=== PATIENT | female | born 1975 | race African-American/Black ===

== ENCOUNTER 2017-05-22 17:05 | Emergency (ER) | payer OTHER ==
[2017-05-22 17:17] VITALS: TEMP 98.7; BMI 38.4
[2017-05-22] MEDS ORDERED: ASPIRIN 81 MG CHEWABLE TABLETS PO ONE (19:22)
[2017-05-22] MEDS ORDERED: ASPIRIN 81 MG CHEWABLE TABLETS ONE (19:47)
[2017-05-22 19:52] LABS: BASOPHIL 0.8 % (0-2.0); EOSINOPHIL 1.7 % (0-4.5); MCH 28.1 pg (25.7-33.7); MCHC 33.4 g/dl (32.0-36.0); MEAN CELL VOLUME 84.1 fl (80-96); MEAN PLT VOLUME 7.3 fl (7.5-11.1); NEUTROPHILS 60.7 % (42.8-82.8); PLATELET COUNT 334 K/MM3 (134-434); RDW 14.6 % (11.6-15.6); WHITE BLOOD COUNT 10.6 K/mm3 (4.0-10.0)
[2017-05-22 19:59] VITALS: BP 146/91; PULSE 88
[2017-05-22 20:14] LABS: INR 0.96 (0.82-1.09); PROTHROMBIN TIME (PATIENT) 10.9 SEC (9.98-11.88)
[2017-05-22 20:27] LABS: ALBUMIN 3.2 g/dl (3.4-5.0); ANION GAP 6 (8-16); BILIRUBIN,TOTAL 0.3 mg/dL (0.2-1.0); CALCIUM 8.4 mg/dL (8.5-10.1); CO2 28 mmol/L (21-32); CREATININE 0.7 mg/dL (0.55-1.02); GLUCOSE,RANDOM 74 mg/dL (74-106); MAGNESIUM 2.2 mg/dL (1.8-2.4); SGOT/AST 11 U/L (15-37); SGPT/ALT 24 U/L (12-78)
[2017-05-22 20:29] LABS: ALK PHOS 67 U/L (45-117); CPK 136 IU/L (26-192); TROPONIN I < 0.02 ng/ml (0.00-0.05)
[2017-05-22 20:36] LABS: URINE APPEARANCE CLOUDY; URINE BILIRUBIN NEGATIVE (NEGATIVE); URINE BLOOD 3+ (NEGATIVE); URINE COLOR YELLOW; URINE GLUCOSE (UA) NEGATIVE (NEGATIVE); URINE KETONE NEGATIVE (NEGATIVE); URINE NITRITE NEGATIVE (NEGATIVE); URINE PROTEIN NEGATIVE (NEGATIVE); URINE UROBILINOGEN NEGATIVE mg/dL (0.2-1.0)
[2017-05-22] MEDS ORDERED: SODIUM CHLORIDE 1,000 ML IV STA (21:03)
[2017-05-22 21:14] LABS: URINE MUCUS RARE; URINE RBC 49 /hpf (0-3); URINE WBC 10 /hpf (3-5); YEAST FEW
--- NOTE | 2017-05-22 21:24 | PDOC ---
History of Present Illness - General History Source: Patient Exam Limitations: No Limitations <HarisVioleta - Last Filed: 05/22/17 21:48> <Sheyla Gonzalez - Last Filed: 05/23/17 01:01> - General Chief Complaint: Palpitations Stated Complaint: CHEST PAIN Time Seen by Provider: 05/22/17 18:08 - History of Present Illness Initial Comments: 05/22/17 21:48 The patient is a 41 year old female, with a significant past medical history of Morbid Obesity, HLD, Depression, Anxiety, Fibromyalgia, Arthritis who presents to the emergency department with palpitations for the past four days. Patient reports sudden onset of palpitations at rest, initially intermittent however became constant today. Patient reports associated SOB however denies any chest pain, diaphoresis or dyspnea on exertion. Patient presents to the ED for further evaluation. She denies headache or dizziness. She denies fever, chills, abdominal pain, nausea, vomit, diarrhea or constipation. She denies dysuria, frequency, urgency or hematuria. Patient denies sick contacts or recent travel. Allergies: Penicillins Past surgical history: Hernia, D&C, C Section 2012, Thyrdoidectomy, Breast reduction, Social history: Social EtOH use. Former smoker (2010) Denied IVDA. PCP: Dr. Valente Lynn (Violeta Carballo) Past History <Violeta Carballo - Last Filed: 05/22/17 21:48> - Past Medical History Cardiac Disorders: Yes (heart murmur) Hypercholesterolemia: Yes Psychiatric Problems: Yes (depression/anxiety) Thyroid Disease: Yes Other medical history: fibromyalgia, inflammation of fascits, arthritis, pinched nerves on back - Surgical History Abdominal Surgery: Yes (Hernia, and D&C) - Immunization History Immunization Up to Date: Yes - Suicide/Smoking/Psychosocial Hx Smoking History: Never smoked Have you smoked in the past 12 months: No Information on smoking cessation initiated: No Hx Alcohol Use: No Drug/Substance Use Hx: No Substance Use Type: Alcohol <Sheyla Gonzalez - Last Filed: 05/23/17 01:01> - Past Medical History Allergies/Adverse Reactions: Allergies Allergy/AdvReac Type Severity Reaction Status Date / Time Penicillins Allergy Verified 05/22/17 20:22 Home Medications: Ambulatory Orders Clonazepam [Klonopin] 1.25 mg PO DAILY 02/12/14 Pregabalin [Lyrica -] 300 mg PO BID 02/12/14 Cholecalciferol (Vitamin D3) [Vitamin D-3] 2,000 unit PO DAILY 09/01/15 Cyclobenzaprine HCl [Flexeril -] 10 mg PO TID PRN 09/01/15 Duloxetine HCl 60 mg PO DAILY 09/01/15 Ibuprofen 600 mg PO TID 09/01/15 Levothyroxine [Synthroid -] 88 mcg PO DAILY 09/01/15 Atorvastatin Ca [Lipitor] 10 mg PO HS 05/22/17 Frovatriptan Succinate [Frova] 2.5 mg PO ASDIR PRN 05/22/17 Review of Systems - Review of Systems Able to Perform ROS?: Yes <Violeta Carballo - Last Filed: 05/22/17 21:48> <Sheyla Gonzalez - Last Filed: 05/23/17 01:01> - Review of Systems Comments:: 05/22/17 21:48 CONSTITUTIONAL: Absent: fever, chills, diaphoresis, generalized weakness, malaise, loss of appetite HEENT: Absent: rhinorrhea, nasal congestion, throat pain, throat swelling, difficulty swallowing, mouth swelling, ear pain, eye pain, visual Changes CARDIOVASCULAR: +palpitations. Absent: chest pain, syncope, palpitations, irregular heart rate, lightheadedness , peripheral edema RESPIRATORY: Absent: cough, shortness of breath, dyspnea with exertion, orthopnea, wheezing, stridor, hemoptysis GASTROINTESTINAL: Absent: abdominal pain, abdominal distension, nausea, vomiting, diarrhea, constipation, melena, hematochezia GENITOURINARY: Absent: dysuria, frequency, urgency, hesitancy, hematuria, flank pain, genital pain MUSCULOSKELETAL: Absent: myalgia, arthralgia, joint swelling SKIN: Absent: rash, itching, pallor HEMATOLOGIC/IMMUNOLOGIC: Absent: easy bleeding, easy bruising, lymphadenopathy, frequent infections ENDOCRINE: Absent: unexplained weight gain, unexplained weight loss, heat intolerance, cold intolerance NEUROLOGIC: Absent: headache, focal weakness or paresthesias, dizziness, unsteady gait, seizure, mental status changes, bladder or bowel incontinence PSYCHIATRIC: Absent: anxiety, depression, suicidal or homicidal ideation, hallucinations. (Violeta Carballo) *Physical Exam <Violeta Carballo - Last Filed: 05/22/17 21:48> <Sheyla Gonzalez - Last Filed: 05/23/17 01:01> - Vital Signs Last Vital Signs Temp Pulse Resp BP Pulse Ox 98.7 F 88 18 146/91 100 05/22/17 17:14 05/22/17 19:58 05/22/17 19:58 05/22/17 19:58 05/22/17 19:58 - Physical Exam Comments: 05/22/17 21:49 GENERAL: +Obese. Well developed, well nourished. Awake and alert. No acute distress. HEENT: Normocephalic, atraumatic. PERRLA, EOMI. No conjunctival pallor. Sclera are non- icteric. Moist mucous membranes. Oropharynx is clear. NECK: Supple. Full ROM. No JVD. Carotid pulses 2+ and symmetric, without bruits. No thyromegaly. No lymphadenopathy. CARDIOVASCULAR: +Sinus tachycardia. Regular rhythm. No murmurs, rubs, or gallops. Distal pulses are 2+ and symmetric. PULMONARY: No evidence of respiratory distress. Lungs clear to auscultation bilaterally. No wheezing, rales or rhonchi. ABDOMINAL: +Protuberant. Soft. Non-tender. Non-distended. No rebound or guarding. No organomegaly. Normoactive bowel sounds. MUSCULOSKELETAL Normal range of motion at all joints. No bony deformities or tenderness. No CVA tenderness. EXTREMITIES: No cyanosis. No clubbing. No edema. No calf tenderness. SKIN: Warm and dry. Normal capillary refill. No rashes. No jaundice. NEUROLOGICAL: Alert, awake, appropriate. Cranial nerves 2-12 intact. No deficits to light touch and temperature in face, upper extremities and lower extremities. No motor deficits in the in face, upper extremities and lower extremities. Normoreflexic in the upper and lower extremities. Normal speech. Toes are down-going bilaterally. Gait is normal without ataxia. PSYCHIATRIC: Cooperative. Good eye contact. Appropriate mood and affect. (Violeta Carballo) ED Treatment Course - LABORATORY CBC & Chemistry Diagram: 05/22/17 19:40 05/22/17 19:40 <Violeta Carballo - Last Filed: 05/22/17 21:48> - LABORATORY CBC & Chemistry Diagram: 05/22/17 19:40 05/22/17 19:40 <Sheyla Gonzalez - Last Filed: 05/23/17 01:01> - ADDITIONAL ORDERS Additional order review: Laboratory Results 05/22/17 05/22/17 05/22/17 20:30 20:30 19:40 PT with INR INR D-Dimer Sodium 139 Potassium 4.3 Chloride 105 Carbon Dioxide 28 Anion Gap 6 L BUN 7 D Creatinine 0.7 Creat Clearance w eGFR > 60 Random Glucose 74 Calcium 8.4 L Magnesium 2.2 Total Bilirubin 0.3 AST 11 L D ALT 24 Alkaline Phosphatase 67 Creatine Kinase 136 Troponin I < 0.02 B-Natriuretic Peptide 69.90 Total Protein 7.0 Albumin 3.2 L Serum , Qual Negative Urine Color Yellow Urine Appearance Cloudy Urine pH 8.0 D Ur Specific [place] 1.020 Urine Protein Negative Urine Glucose (UA) Negative Urine Ketones Negative Urine Blood 3+ H Urine Nitrite Negative Urine Bilirubin Negative Urine Urobilinogen Negative Ur Leukocyte Esterase Negative Urine RBC 49 Urine WBC 10 Ur Epithelial Cells Rare Urine Mucus Rare Urine Yeast Few 05/22/17 19:40 PT with INR 10.90 INR 0.96 D-Dimer 293 H Sodium Potassium Chloride Carbon Dioxide Anion Gap BUN Creatinine Creat Clearance w eGFR Random Glucose Calcium Magnesium Total Bilirubin AST ALT Alkaline Phosphatase Creatine Kinase Troponin I B-Natriuretic Peptide Total Protein Albumin Serum , Qual Urine Color Urine Appearance Urine pH Ur Specific [place] Urine Protein Urine Glucose (UA) Urine Ketones Urine Blood Urine Nitrite Urine Bilirubin Urine Urobilinogen Ur Leukocyte Esterase Urine RBC Urine WBC Ur Epithelial Cells Urine Mucus Urine Yeast 05/22/17 19:40 RBC 4.12 MCV 84.1 MCHC 33.4 RDW 14.6 MPV 7.3 L D Neutrophils % 60.7 D Lymphocytes % 28.2 D Monocytes % 8.6 Eosinophils % 1.7 Basophils % 0.8 - RADIOLOGY Radiology Studies Ordered: Category Date Time Status CHEST CTA [CT] Stat CT Scan 05/22/17 21:02 Completed - Medications Given in the ED: ED Medications Discontinued Medications Generic Name Dose Route Start Last Admin Trade Name Freq PRN Reason Stop Dose Admin Aspirin 162 mg 05/22/17 19:22 05/22/17 19:56 Asa - PO 05/22/17 19:23 162 mg ONCE ONE Administration Diphenhydramine HCl 25 mg 05/22/17 22:21 05/22/17 22:50 Benadryl Injection - IVPUSH 05/22/17 22:22 25 mg ONCE ONE Administration Sodium Chloride 1,000 mls @ 1,000 mls/hr 05/22/17 21:03 05/22/17 21:32 Normal Saline - IV 05/22/17 22:02 1,000 mls/hr ASDIR STA Administration Ondansetron HCl 4 mg 05/22/17 22:20 05/22/17 22:50 Zofran Injection IVPUSH 05/22/17 22:21 4 mg ONCE ONE Administration Medical Decision Making <Violeta Carballo - Last Filed: 05/22/17 21:48> <Sheyla Gonzalez - Last Filed: 05/23/17 01:01> - Medical Decision Making 05/23/17 00:58 41-year-old female presents with 4 days of palpitations and has been feeling short of breath today. She has past medical history significant for DVT, fibromyalgia, obesity, hypercholesterolemia EKG was normal sinus rhythm at 99 bpm. When compared to the previous EKG there is no significant changes She was not hypoxic. CBC was unremarkable. Her electrolytes, liver function tests, cardiac enzymes were all within normal limits CT of the chest was negative for any pulmonary embolus Impression palpitations On further discussion, the patient did admit to see a sports apparel internship and having a echo done, but then never went back to see him whenshe became symptomatic ( Sheyla Gonzalez) *DC/Admit/Observation/Transfer <Violeta Carballo - Last Filed: 05/22/17 21:48> <Sheyla Gonzalez - Last Filed: 05/23/17 01:01> Diagnosis at time of Disposition: Palpitations - Discharge Dispostion Disposition: HOME Condition at time of disposition: Stable - Referrals Referrals: Shane Victor [Primary Care Provider] - - Patient Instructions Printed Discharge Instructions: DI for Palpitations Additional Instructions: please follow up with your regular physician I have given you the name of a heart doctor for further evaluation return for any worsening symptoms - Attestations Scribe Attestion: 05/22/17 21:49 Documentation prepared by Violeta Carballo, acting as faculty i on call medical assistant for Sheyla Gonzalez MD (Violeta Carballo)
[2017-05-22] MEDS ORDERED: ONDANSETRON 4 MG/2 ML VIAL IVPUSH ONE (22:20)
[2017-05-22 22:53] LABS: URINE LEUK ESTERASE Negative (NEGATIVE)
--- NOTE | 2017-05-24 09:34 | EKG ---
Test Reason : Blood Pressure : / mmHG Vent. Rate : 099 BPM Atrial Rate : 099 BPM P-R Int : 168 ms QRS Dur : 082 ms QT Int : 350 ms P-R-T Axes : 061 056 023 degrees QTc Int : 449 ms NORMAL SINUS RHYTHM NONSPECIFIC T WAVE ABNORMALITY ABNORMAL ECG WHEN COMPARED WITH ECG OF 01-SEP-2015 20:03, NO SIGNIFICANT CHANGE WAS FOUND Confirmed by JUSTYN VARGAS MD ([id number]) on 05/24/2017 9:33:53 AM Referred By: Confirmed By:JUSTYN VARGAS MD
== END 2017-05-23 01:14 | disposition home or self-care (01) ==
LOC: JER 17:05
PROC: 3E0337Z Introduction of Electrolytic and Water Balance Substance into Peripheral Vein, Percutaneous Approach (ICD-10-PCS; principal; 2017-05-22)
PROC: 3E033GC Introduction of Other Therapeutic Substance into Peripheral Vein, Percutaneous Approach (ICD-10-PCS; 2017-05-22)
DX: R00.2 Palpitations (principal); E03.9 Hypothyroidism, unspecified; F41.8 Other specified anxiety disorders; M79.7 Fibromyalgia; E66.01 Morbid (severe) obesity due to excess calories; Z68.38 Body mass index [BMI] 38.0-38.9, adult
CPT/HCPCS: 36415; 71275-TC; 80053; 81003; 81015; 82550; 83735; 83880; 84484; 84703; 85025; 85379; 85610; 93005; 93010; 96361; 96374; 96375; 99283-25

== ENCOUNTER 2018-11-19 16:50 | Emergency (ER) | payer OTHER ==
--- NOTE | 2018-11-19 17:02 | PDOC ---
Rapid Medical Evaluation Chief Complaint: Injury Time Seen by Provider: 11/19/18 17:00 Medical Evaluation: Allergies Allergy/AdvReac Type Severity Reaction Status Date / Time Penicillins Allergy Verified 05/22/17 20:22 11/19/18 17:00 I have performed a brief in-person evaluation of this patient. The patient presents with a chief complaint of:R ankle/L knee pain s/p fall at work today. H/o fibromyalgia Pertinent physical exam findings:Doroteo in place to L ankle and R knee I have ordered the following:xray The patient will proceed to the ED for further evaluation. Discharge Disposition - Diagnosis Ankle injury Qualifiers: Encounter type: initial encounter Laterality: right Qualified Code(s): S99.911A - Unspecified injury of right ankle, initial encounter - Referrals - Patient Instructions - Post Discharge Activity
[2018-11-19 17:19] VITALS: BP 120/77; PULSE 91; TEMP 98.5; BMI 37.1
--- NOTE | 2018-11-19 18:14 | PDOC ---
History of Present Illness - General Chief Complaint: Injury Stated Complaint: FALL Time Seen by Provider: 11/19/18 17:00 - History of Present Illness Initial Comments: 11/19/18 18:10 43-year-old female with a past medical history of dyslipidemia and fibromyalgia presents after a mechanical fall today for right ankle pain and left knee pain. No loss consciousness or post injury nausea vomiting or visual changes. Past History - Past Medical History Allergies/Adverse Reactions: Allergies Allergy/AdvReac Type Severity Reaction Status Date / Time Penicillins Allergy Verified 11/19/18 17:23 Home Medications: Ambulatory Orders Clonazepam [Klonopin] 1.25 mg PO DAILY 02/12/14 Pregabalin [Lyrica -] 300 mg PO BID 02/12/14 Cholecalciferol (Vitamin D3) [Vitamin D-3] 2,000 unit PO DAILY 09/01/15 Cyclobenzaprine HCl [Flexeril -] 10 mg PO TID PRN 09/01/15 Duloxetine HCl 60 mg PO DAILY 09/01/15 Ibuprofen 600 mg PO TID 09/01/15 Levothyroxine [Synthroid -] 88 mcg PO DAILY 09/01/15 Atorvastatin Ca [Lipitor] 10 mg PO HS 05/22/17 Frovatriptan Succinate [Frova] 2.5 mg PO ASDIR PRN 05/22/17 Cardiac Disorders: Yes (heart murmur) COPD: No Hypercholesterolemia: Yes Psychiatric Problems: Yes (depression/anxiety) Thyroid Disease: Yes - Surgical History Abdominal Surgery: Yes (Hernia, and D&C) - Immunization History Immunization Up to Date: Yes - Suicide/Smoking/Psychosocial Hx Smoking History: Never smoked Have you smoked in the past 12 months: No Information on smoking cessation initiated: No Hx Alcohol Use: No Drug/Substance Use Hx: No Substance Use Type: Alcohol Review of Systems - Review of Systems Musculoskeletal: Yes: See HPI, Joint Pain *Physical Exam - Vital Signs Last Vital Signs Temp Pulse Resp BP Pulse Ox 98.5 F 91 H 16 120/77 100 11/19/18 17:00 11/19/18 17:00 11/19/18 17:00 11/19/18 17:00 11/19/18 17:00 - Physical Exam Comments: 11/19/18 18:11 Left knee skin color and temperature are normal range of motion is full. She has diffuse tenderness which is out of proportion to the examination. No instability or gross sensorimotor deficits. She is neurovascularly intact. Eyes and calves are soft and nontender. Right ankle skin color and temperature are normal. There is mild lateral swelling. She has no tenderness about the right knee proximal fibula or along its distal coarse. No tenderness about the medial malleolus navicular base of the fifth metatarsal. Mild tenderness over the lateral malleolus and ATFL. She is unable to tolerate stability testing she is neurovascularly intact free of any gross sensorimotor deficits thighs and calves are soft and nontender. Medical Decision Making - Medical Decision Making 11/19/18 18:12 This is a 43-year-old female with a past medical history of fibromyalgia. She is very tender all over even to light touch which is out of proportion to the examination. This is a right ankle sprain in the left knee contusion. She may weight-bear as tolerated with the use of crutches and Aircast follow-up with orthopedic surgery discussed use of Tylenol and Motrin for pain. *DC/Admit/Observation/Transfer Diagnosis at time of Disposition: Ankle sprain, Knee contusion Ankle injury Qualifiers: Encounter type: initial encounter Laterality: right Qualified Code(s): S99.911A - Unspecified injury of right ankle, initial encounter - Discharge Dispostion Disposition: HOME Condition at time of disposition: Stable Decision to Admit order: No - Referrals Referrals: ON STAFF,NOT [Primary Care Provider] - Dar Sears DO [Staff Physician] - - Patient Instructions Printed Discharge Instructions: Ankle Sprain, DI for Ankle Sprain, Contusion Additional Instructions: He may weight-bear as tolerated with use of crutches and the Aircast. Tylenol and Motrin as directed for pain. Return to the emergency room for worsening symptoms and follow-up with orthopedic surgery in 1-2 days for further evaluation and treatment options. He may remove the ankle splint for hygiene and comfort as well as gentle range of motion exercises. - Post Discharge Activity
== END 2018-11-19 18:56 | disposition home or self-care (01) ==
LOC: JERFT 16:50
DX: S93.401A Sprain of unspecified ligament of right ankle, initial encounter (principal); S80.02XA Contusion of left knee, initial encounter; W18.39XA Other fall on same level, initial encounter; Y93.89 Activity, other specified; Y92.39 Other specified sports and athletic area as the place of occurrence of the external cause; Y99.0 Civilian activity done for income or pay; R01.1 Cardiac murmur, unspecified; E78.00 Pure hypercholesterolemia, unspecified; F41.8 Other specified anxiety disorders; F32.9 Major depressive disorder, single episode, unspecified; M79.7 Fibromyalgia
CPT/HCPCS: 73562-TC-LT-FY; 73610-TC-RT-FY; 73630-TC-RT-FY; 99281-25

== ENCOUNTER 2019-05-17 15:16 | Emergency (ER) | payer OTHER ==
[2019-05-17 15:25] VITALS: BP 127/84; PULSE 83; TEMP 97.5; BMI 36.1
--- NOTE | 2019-05-17 15:28 | PDOC ---
Rapid Medical Evaluation Time Seen by Provider: 05/17/19 15:23 Medical Evaluation: Allergies Allergy/AdvReac Type Severity Reaction Status Date / Time Penicillins Allergy Verified 11/19/18 17:23 05/17/19 15:23 I have performed a brief in-person evaluation of this patient. The patient presents with a chief complaint of: s/p fall at work. Her ankle gave out on her and she landed on Pertinent physical exam findings: R sided hip/knee/ankle tenderness I have ordered the following: Xrays The patient will proceed to the ED for further evaluation. Discharge Disposition - Diagnosis Fall - Referrals - Patient Instructions - Post Discharge Activity
--- NOTE | 2019-05-17 15:39 | PDOC ---
History of Present Illness - General Chief Complaint: Injury Stated Complaint: INJURY Time Seen by Provider: 05/17/19 15:23 History Source: Patient - History of Present Illness Occurred: reports: this afternoon Pain Location: reports: lower extremity Method of Injury: Yes: fall Past History - Past Medical History Allergies/Adverse Reactions: Allergies Allergy/AdvReac Type Severity Reaction Status Date / Time Penicillins Allergy Verified 05/17/19 15:26 Home Medications: Ambulatory Orders Clonazepam [Klonopin] 1.25 mg PO DAILY 02/12/14 Pregabalin [Lyrica -] 300 mg PO BID 02/12/14 Cholecalciferol (Vitamin D3) [Vitamin D-3] 2,000 unit PO DAILY 09/01/15 Cyclobenzaprine HCl [Flexeril -] 10 mg PO TID PRN 09/01/15 Duloxetine HCl 60 mg PO DAILY 09/01/15 Ibuprofen 600 mg PO TID 09/01/15 Levothyroxine [Synthroid -] 88 mcg PO DAILY 09/01/15 Atorvastatin Ca [Lipitor] 10 mg PO HS 05/22/17 Frovatriptan Succinate [Frova] 2.5 mg PO ASDIR PRN 05/22/17 Cardiac Disorders: Yes (heart murmur) COPD: No Hypercholesterolemia: Yes Psychiatric Problems: Yes (depression/anxiety) Thyroid Disease: Yes Other medical history: fibromyalgia - Surgical History Abdominal Surgery: Yes (Hernia, and D&C) - Immunization History Immunization Up to Date: Yes - Psycho Social/Smoking Cessation Hx Smoking History: Never smoked Have you smoked in the past 12 months: No Hx Alcohol Use: Yes Drug/Substance Use Hx: No Substance Use Type: Alcohol Review of Systems - Review of Systems Musculoskeletal: Yes: Joint Pain, Joint Swelling. No: Back Pain, Neck Pain Neurological: No: Headache *Physical Exam - Vital Signs Last Vital Signs Temp Pulse Resp BP Pulse Ox 97.5 F L 83 16 127/84 100 05/17/19 15:22 05/17/19 15:22 05/17/19 15:22 05/17/19 15:22 05/17/19 15:22 - Physical Exam General Appearance: Yes: Appropriately Dressed, Mild Distress HEENT: positive: Normal Voice Neck: positive: Supple Respiratory/Chest: negative: Respiratory Distress Extremity: positive: Swelling (minimal to lat malleolus of R ankle) Integumentary: positive: Dry, Warm Neurologic: positive: Fully Oriented, Alert, Normal Mood/Affect Medical Decision Making - Medical Decision Making 05/17/19 15:39 43-year-old female, no significant history, here w/ R ankle pain and swelling s/ p fall. Patient states today at work, her R ankle gave out causing her to fall forward. States ankle pain now radiating up to her right hip. Painful to bear weight. Patient reports that her ankle has given out multiple times in the past but has never been evaluated by orthopedics. see exam R ankle sprain XR neg -FATOU placed and crutches given, dose of motrin given -Dc w/ [facility] and ortho f/u Discharge - Discharge Information Problems reviewed: Yes Clinical Impression/Diagnosis: Fall Qualifiers: Encounter type: initial encounter Qualified Code(s): W19.XXXA - Unspecified fall, initial encounter Ankle sprain Qualifiers: Encounter type: initial encounter Involved ligament of ankle: unspecified ligament Laterality: right Qualified Code(s): S93.401A - Sprain of unspecified ligament of right ankle, initial encounter Disposition: HOME - Follow up/Referral Referrals: Cole Lucio MD [Staff Physician] - - Patient Discharge Instructions Patient Printed Discharge Instructions: DI for Ankle Sprain Additional Instructions: Take Motrin or Tylenol for pain and follow-up with Dr. Lucio of orthopedics - Post Discharge Activity Work/Back to School Note: Back to Work
[2019-05-17] MEDS ORDERED: IBUPROFEN 400 MG TABLET (FP) PO ONE ×2 (16:12→16:19)
== END 2019-05-17 16:30 | disposition home or self-care (01) ==
LOC: JERFT 15:16
DX: S93.401A Sprain of unspecified ligament of right ankle, initial encounter (principal); W18.39XA Other fall on same level, initial encounter; Y93.89 Activity, other specified; Y92.89 Other specified places as the place of occurrence of the external cause; Y99.0 Civilian activity done for income or pay; Z88.0 Allergy status to penicillin; R01.1 Cardiac murmur, unspecified; E78.00 Pure hypercholesterolemia, unspecified; F41.8 Other specified anxiety disorders; E07.9 Disorder of thyroid, unspecified; M79.7 Fibromyalgia; K46.9 Unspecified abdominal hernia without obstruction or gangrene
CPT/HCPCS: 73502-TC-RT-FY; 73562-TC-RT-FY; 73610-TC-RT-FY; 99282-25

== ENCOUNTER 2021-05-26 22:57 | Emergency (ER) | payer OTHER ==
[2021-05-26 23:04] VITALS: BP 158/86; TEMP 98.4; BMI 40.6
[2021-05-26] MEDS ORDERED: ACETAMINOPHEN 1000 MG/100 ML VIAL IVPB ONE (23:55)
[2021-05-27] MEDS ORDERED: ACETAMINOPHEN INJECTION 100 ML IVPB ONE (00:07)
[2021-05-27] MEDS ORDERED: LACTATED RINGERS SOLUTION 1000 ML INFUS.BAG IV ONE (00:13)
[2021-05-27 00:19] LABS: BASO % 1.2 % (0-2.0); EOS % 2.5 % (0-4.5); HEMATOCRIT 35.6 % (32.4-45.2); LYMPH % 30.4 % (8-40); MCH 28.2 pg (25.7-33.7); MCHC 33.8 g/dl (32.0-36.0); MEAN CELL VOLUME 83.3 fl (80-96); MEAN PLT VOLUME 7.2 fl (7.5-11.1); MONO % 4.9 % (3.8-10.2); PLATELET COUNT 396 10^3/uL (134-434); RBC 4.27 M/mm3 (3.60-5.2); RDW 14.9 % (11.6-15.6); WHITE BLOOD COUNT 10.7 K/mm3 (4.0-10.0)
[2021-05-27 00:27] LABS: INR 1.01 (0.83-1.09); PROTHROMBIN TIME (PATIENT) 11.3 SEC (9.7-13.0)
[2021-05-27 00:29] LABS: ACTIVATED PTT 31.4 SECONDS (25.2-36.5)
[2021-05-27 00:31] LABS: CHLORIDE 106 mmol/L (98-107); SODIUM 139 mmol/L (136-145)
[2021-05-27 00:33] LABS: CALCIUM 8.9 mg/dL (8.5-10.1)
[2021-05-27 00:34] LABS: ALBUMIN 3.6 g/dl (3.4-5.0); ANION GAP 5 MMOL/L (8-16); BLOOD UREA NITROGEN 10.9 mg/dL (7-18); CO2 29 mmol/L (21-32); GLUCOSE,RANDOM 126 mg/dL (74-106)
[2021-05-27 00:34] LABS: EPI CELLS 13 /uL (0-25.1); HYALINE CASTS 0 /uL (0-3.1); PH,URINE 5.5 (5.0-8.0); URINE APPEARANCE CLEAR; URINE BACTERIA 74 /uL (0-1359); URINE BILIRUBIN NEGATIVE (NEGATIVE); URINE COLOR YELLOW; URINE GLUCOSE (UA) NEGATIVE (NEGATIVE); URINE KETONE NEGATIVE (NEGATIVE); URINE LEUK ESTERASE 1+ (NEGATIVE); URINE NITRITE NEGATIVE (NEGATIVE); URINE PROTEIN NEGATIVE (NEGATIVE); URINE RBC 17 /uL (0-23.9); URINE UROBILINOGEN 0.2 mg/dL (0.2-1.0); URINE WBC 29 /uL (0-25.8)
[2021-05-27 00:37] LABS: CREATININE 0.9 mg/dL (0.55-1.3); SGOT/AST 25 U/L (15-37); SGPT/ALT 31 U/L (13-61)
[2021-05-27 00:38] LABS: BILIRUBIN,TOTAL 0.3 mg/dL (0.2-1)
[2021-05-27 00:39] LABS: TOT PROT 8.1 g/dl (6.4-8.2)
[2021-05-27 00:40] LABS: ALK PHOS 75 U/L (45-117)
[2021-05-27 04:41] VITALS: PULSE 74
== END 2021-05-27 04:41 | disposition home or self-care (01) ==
LOC: JER 22:57
PROC: 3E033NZ Introduction of Analgesics, Hypnotics, Sedatives into Peripheral Vein, Percutaneous Approach (ICD-10-PCS; principal; 2021-05-26)
DX: N83.201 Unspecified ovarian cyst, right side (principal); N39.0 Urinary tract infection, site not specified; R00.2 Palpitations
CPT/HCPCS: 36415; 71046-TC-FY; 71275-TC; 76830-TC; 80053; 81003; 82550; 82553; 84443; 84484; 84703; 85025; 85379; 85610; 85730; 87086; 93005; 93010; 99284-25; J0131

== ENCOUNTER 2021-06-04 14:36 | Inpatient (IN) | payer OTHER ==
[2021-06-04] MEDS ORDERED: ACETAMINOPHEN 1000 MG/100 ML VIAL IVPB ONE (16:25)
[2021-06-04] MEDS ORDERED: SODIUM CHLORIDE 1,000 ML IV STA (16:25)
[2021-06-04] MEDS ORDERED: morphine CARPU-JECT 4 MG/1 ML DISP.SYRIN IVPUSH ONE ×2 (16:26→20:21)
[2021-06-04] MEDS ORDERED: ACETAMINOPHEN INJECTION 100 ML IVPB ONE (17:03)
[2021-06-04] MEDS ORDERED: morphine SULFATE 4 MG/ML VIAL ONE ×2 (17:03→20:56)
[2021-06-04 17:34] LABS: HEMATOCRIT 39.2 % (32.4-45.2); HEMOGLOBIN 13.1 GM/dL (10.7-15.3); MCH 27.7 pg (25.7-33.7); MCHC 33.5 g/dl (32.0-36.0); MEAN CELL VOLUME 82.9 fl (80-96); PLATELET COUNT 256 10^3/uL (134-434); RBC 4.73 M/mm3 (3.60-5.2); WHITE BLOOD COUNT 5.1 K/mm3 (4.0-10.0)
[2021-06-04 17:41] LABS: EPI CELLS >36 /uL (0-25.1); HYALINE CASTS 13 /uL (0-3.1); URINE APPEARANCE CLEAR; URINE BACTERIA 411 /uL (0-1359); URINE BILIRUBIN 1+ (NEGATIVE); URINE COLOR DK YELLOW; URINE GLUCOSE (UA) NEGATIVE (NEGATIVE); URINE KETONE 2+ (NEGATIVE); URINE LEUK ESTERASE TRACE (NEGATIVE); URINE NITRITE NEGATIVE (NEGATIVE); URINE PROTEIN 2+ (NEGATIVE); URINE RBC 12 /uL (0-23.9); URINE WBC 64 /uL (0-25.8)
[2021-06-04 17:52] LABS: CHLORIDE 104 mmol/L (98-107); SODIUM 138 mmol/L (136-145)
[2021-06-04 17:58] LABS: ALBUMIN 3.4 g/dl (3.4-5.0); ANION GAP 11 MMOL/L (8-16); BLOOD UREA NITROGEN 10.8 mg/dL (7-18); CALCIUM 8.7 mg/dL (8.5-10.1); CO2 23 mmol/L (21-32); GLUCOSE,RANDOM 91 mg/dL (74-106); LIPASE 71 U/L (73-393)
[2021-06-04 18:00] LABS: SGOT/AST 75 U/L (15-37); SGPT/ALT 69 U/L (13-61)
[2021-06-04 18:01] LABS: CREATININE 0.8 mg/dL (0.55-1.3)
[2021-06-04 18:02] LABS: BILIRUBIN,TOTAL 0.5 mg/dL (0.2-1)
[2021-06-04 18:03] LABS: ALK PHOS 121 U/L (45-117)
[2021-06-04 18:16] LABS: ERYTHROCYTE SEDIMENTATION RATE 41 mm/hr (0-20)
[2021-06-04 18:25] LABS: MAGNESIUM 2.2 mg/dL (1.8-2.4)
[2021-06-04 18:42] LABS: ANISOCYTOSIS 1+; MACROCYTOSIS 0; PLATELET ESTIMATE NORMAL
[2021-06-04] MEDS ORDERED: KETOROLAC TROMETHAMINE 15 MG/ML VIAL IVPUSH ONE (23:13)
[2021-06-04] MEDS ORDERED: KETOROLAC TROMETHAMINE 15 MG/ML VIAL ONE (23:15)
[2021-06-05] MEDS ORDERED: LACTATED RINGERS SOLUTION 1000 ML INFUS.BAG IV ONE (02:01)
[2021-06-05] MEDS ORDERED: PATIENT'S OWN MEDICATION (NON-FORMULARY) (Clobetasol Propionate/Emoll [Clobetasol Emollien TP PRN (03:38)
[2021-06-05 06:07] LABS: HEMATOCRIT 35.7 % (32.4-45.2); HEMOGLOBIN 11.7 GM/dL (10.7-15.3); MCH 27.9 pg (25.7-33.7); MCHC 32.9 g/dl (32.0-36.0); MEAN CELL VOLUME 84.8 fl (80-96); PLATELET COUNT 232 10^3/uL (134-434); RBC 4.21 M/mm3 (3.60-5.2); RDW 15.1 % (11.6-15.6); WHITE BLOOD COUNT 4.6 K/mm3 (4.0-10.0)
[2021-06-05 06:14] LABS: INR 1.13 (0.83-1.09); PROTHROMBIN TIME (PATIENT) 13.2 SEC (9.7-13.0)
[2021-06-05 06:17] LABS: ACTIVATED PTT 24.2 SECONDS (25.2-36.5)
[2021-06-05 06:28] LABS: CALCIUM 8.1 mg/dL (8.5-10.1)
[2021-06-05 06:29] LABS: ALBUMIN 2.9 g/dl (3.4-5.0); BLOOD UREA NITROGEN 8.8 mg/dL (7-18)
[2021-06-05 06:32] LABS: CREATININE 0.7 mg/dL (0.55-1.3); PHOSPHOROUS 2.7 mg/dL (2.5-4.9)
[2021-06-05 06:33] LABS: BILIRUBIN,TOTAL 0.3 mg/dL (0.2-1)
[2021-06-05] MEDS ORDERED: clonazePAM 0.5 MG TABLET ONE ×2 (08:51→18:38)
[2021-06-05 08:52] LABS: ANISOCYTOSIS 1+; PLATELET ESTIMATE NORMAL
[2021-06-05] MEDS ORDERED: DOCUSATE SODIUM 100 MG CAPSULE (FP) PO ONE (08:52)
[2021-06-05] MEDS ORDERED: AZTREONAM 1 GM VIAL (RESTRICTED TO ID) ONE ×2 (08:52→18:17)
[2021-06-05] MEDS ORDERED: PT OWN MED DRAWER 7, Y5N ONE ×3 (08:53→21:41)
[2021-06-05] MEDS ORDERED: ENOXAPARIN NA (PORCINE) 40 MG/0.4 ML DISP.SYRIN SQ ONE (08:53)
[2021-06-05] MEDS: DOCUSATE SODIUM 100 MG CAPSULE (FP) PO SCH ×2 (09:21→21:41)
[2021-06-05] MEDS: AZTREONAM 1 GM in DEXTROSE 5%-WATER - 50 ML IVPB SCH ×2 (09:21→18:51)
[2021-06-05] MEDS: ENOXAPARIN NA (PORCINE) 40 MG/0.4 ML DISP.SYRIN SQ SCH ×2 (09:22→21:41)
[2021-06-05] MEDS: clonazePAM 0.5 MG TABLET PO SCH ×2 (09:22→18:51)
[2021-06-05] MEDS ORDERED: morphine SULFATE 4 MG/ML VIAL ONE (09:26)
[2021-06-05] MEDS: morphine SULFATE 4 MG/ML VIAL IVPUSH PRN (09:30)
[2021-06-05] MEDS ORDERED: ACETAMINOPHEN 325 MG TABLET (FP) ONE ×2 (10:43→18:38)
[2021-06-05] MEDS: oxyCODONE HCL 5 MG TABLET PO PRN ×2 (10:44→18:49)
[2021-06-05] MEDS ORDERED: oxyCODONE HCL 5 MG TABLET ONE ×2 (10:44→18:39)
[2021-06-05] MEDS: ACETAMINOPHEN 325 MG TABLET (FP) PO PRN ×2 (10:50→18:50)
[2021-06-05] MEDS: LEVOTHYROXINE NA 88 MCG TABLET (FP) PO SCH (12:28)
[2021-06-05] MEDS: FLUoxetine HCL 20 MG CAPSULE PO SCH (12:28)
[2021-06-06 00:36] VITALS: BMI 38.2
[2021-06-06 07:46] LABS: HEMATOCRIT 33.5 % (32.4-45.2); HEMOGLOBIN 11.2 GM/dL (10.7-15.3); MCH 27.7 pg (25.7-33.7); MCHC 33.3 g/dl (32.0-36.0); MEAN CELL VOLUME 83.1 fl (80-96); MEAN PLT VOLUME 7.7 fl (7.5-11.1); PLATELET COUNT 247 10^3/uL (134-434); RBC 4.03 M/mm3 (3.60-5.2); WHITE BLOOD COUNT 5.9 K/mm3 (4.0-10.0)
[2021-06-06 07:56] LABS: ALBUMIN 2.7 g/dl (3.4-5.0); BLOOD UREA NITROGEN 7.3 mg/dL (7-18); CALCIUM 8.4 mg/dL (8.5-10.1)
[2021-06-06 07:59] LABS: CREATININE 0.6 mg/dL (0.55-1.3)
[2021-06-06 08:01] LABS: BILIRUBIN,TOTAL 0.4 mg/dL (0.2-1); TOT PROT 6.6 g/dl (6.4-8.2)
[2021-06-06] MEDS: clonazePAM 0.5 MG TABLET PO SCH (09:40)
[2021-06-06] MEDS: LEVOTHYROXINE NA 88 MCG TABLET (FP) PO SCH (09:40)
[2021-06-06] MEDS: FLUoxetine HCL 20 MG CAPSULE PO SCH (09:41)
[2021-06-06] MEDS: DOCUSATE SODIUM 100 MG CAPSULE (FP) PO SCH ×2 (09:41→21:04)
[2021-06-06] MEDS: ENOXAPARIN NA (PORCINE) 40 MG/0.4 ML DISP.SYRIN SQ SCH ×2 (09:41→21:04)
[2021-06-06] MEDS: oxyCODONE HCL 5 MG TABLET PO PRN ×2 (10:26→21:04)
[2021-06-06] MEDS: morphine SULFATE 4 MG/ML VIAL IVPUSH PRN (18:08)
[2021-06-07] MEDS: oxyCODONE HCL 5 MG TABLET PO PRN (05:27)
[2021-06-07] MEDS ORDERED: LEVOTHYROXINE NA 88 MCG TABLET (FP) PO SCH (07:00)
[2021-06-07] MEDS: FLUoxetine HCL 20 MG CAPSULE PO SCH (09:53)
[2021-06-07] MEDS: clonazePAM 0.5 MG TABLET PO SCH (09:54)
[2021-06-07] MEDS: DOCUSATE SODIUM 100 MG CAPSULE (FP) PO SCH (09:54)
[2021-06-07] MEDS: ENOXAPARIN NA (PORCINE) 40 MG/0.4 ML DISP.SYRIN SQ SCH (09:54)
[2021-06-07] MEDS: morphine SULFATE 4 MG/ML VIAL IVPUSH PRN (09:57)
[2021-06-07 13:12] VITALS: BP 163/89; PULSE 77; TEMP 97.8
== END 2021-06-07 13:55 | disposition home or self-care (01) | DRG 111 ==
LOC: JER 14:36 → JERBED 06-05 01:50 → J4S 06-05 20:56
PROVIDERS: ADMIT Internal Medicine
DX: R42 Dizziness and giddiness (principal); M62.81 Muscle weakness (generalized); N83.201 Unspecified ovarian cyst, right side; R07.89 Other chest pain; R10.2 Pelvic and perineal pain; E03.9 Hypothyroidism, unspecified; I10 Essential (primary) hypertension; E78.5 Hyperlipidemia, unspecified; Z86.718 Personal history of other venous thrombosis and embolism; M79.7 Fibromyalgia; Z88.0 Allergy status to penicillin; E66.9 Obesity, unspecified; Z68.38 Body mass index [BMI] 38.0-38.9, adult; R74.01 Elevation of levels of liver transaminase levels; L90.0 Lichen sclerosus et atrophicus; N39.0 Urinary tract infection, site not specified
CPT/HCPCS: 36415; 71046-TC-FY; 71275-TC; 76705-TC; 76830-TC; 76856-TC; 80053; 80061; 81003; 82550; 82553; 83036; 83690; 83735; 84100; 84439; 84443; 84480; 84484; 85025; 85027; 85379; 85610; 85651; 85730; 86038; 86140; 86225; 86304; 86705; 86707; 86708; 86850; 86900; 86901; 87086; 87186; 87340; 87350; 87517; 87522; 87804; 93005; 93010; 93306-TC; 93970-TC; 99285-25; C9803; J0131; U0003; U0005

== ENCOUNTER 2023-01-18 17:26 | Emergency (ER) | payer OTHER ==
[2023-01-18 17:35] VITALS: TEMP 98.3; BMI 41.2
[2023-01-18] MEDS ORDERED: SODIUM CHLORIDE 0.9% 500 ML INFUS.BAG IV ONE (18:19)
[2023-01-18] MEDS ORDERED: METOCLOPRAMIDE HCL INJECTION 10 MG/2 ML VIAL IVPB ONE (18:19)
[2023-01-18] MEDS ORDERED: MECLIZINE HCL 25 MG TABLET (FP) PO ONE (18:19)
[2023-01-18] MEDS ORDERED: ACETAMINOPHEN 1000 MG/100 ML BAG IVPB ONE (18:20)
[2023-01-18] MEDS ORDERED: MECLIZINE HCL 25 MG TABLET (FP) ONE (19:06)
[2023-01-18] MEDS ORDERED: METOCLOPRAMIDE HCL INJECTION 10 MG/2 ML VIAL ONE (19:06)
[2023-01-18] MEDS ORDERED: ACETAMINOPHEN INJECTION 100 ML IVPB ONE (19:06)
[2023-01-18 19:21] LABS: EPI CELLS >36 /uL (0-25.1); HYALINE CASTS 3 /uL (0-3.1); URINE APPEARANCE CLEAR; URINE BACTERIA 1579 /uL (0-1359); URINE BILIRUBIN NEGATIVE (NEGATIVE); URINE COLOR YELLOW; URINE GLUCOSE (UA) NEGATIVE (NEGATIVE); URINE KETONE TRACE (NEGATIVE); URINE LEUK ESTERASE 2+ (NEGATIVE); URINE NITRITE NEGATIVE (NEGATIVE); URINE PROTEIN NEGATIVE (NEGATIVE); URINE RBC 14 /uL (0-23.9); URINE UROBILINOGEN 0.2 mg/dL (0.2-1.0); URINE WBC 307 /uL (0-25.8)
[2023-01-18 19:26] LABS: BASO % 1.2 % (0-2.0); EOS % 4.6 % (0-4.5); HEMATOCRIT 35.8 % (32.4-45.2); HEMOGLOBIN 11.6 GM/dL (10.7-15.3); LYMPH % 41.8 % (8-40); MCH 27.2 pg (25.7-33.7); MCHC 32.4 g/dl (32.0-36.0); MEAN CELL VOLUME 83.8 fl (80-96); MEAN PLT VOLUME 8.1 fl (7.5-11.1); MONO % 5.2 % (3.8-10.2); NEUT % 47.2 % (42.8-82.8); PLATELET COUNT 385 10^3/uL (134-434); RBC 4.28 M/mm3 (3.60-5.2); RDW 15.1 % (11.6-15.6); WHITE BLOOD COUNT 6.4 K/mm3 (4.0-10.0)
[2023-01-18] MEDS ORDERED: CEFTRIAXONE 1,000 MG in DEXTROSE 5%-WATER - 50 ML IVPB ONE (20:04)
[2023-01-18 20:13] LABS: POTASSIUM 3.9 mmol/L (3.5-5.1)
[2023-01-18 20:15] LABS: CALCIUM 8.9 mg/dL (8.5-10.1)
[2023-01-18 20:16] LABS: BLOOD UREA NITROGEN 7.8 mg/dL (7-18)
[2023-01-18 20:18] LABS: CREATININE 0.7 mg/dL (0.55-1.3)
[2023-01-18 20:19] LABS: PHOSPHOROUS 2.3 mg/dL (2.5-4.9)
[2023-01-18 20:20] LABS: BILIRUBIN,TOTAL 0.3 mg/dL (0.2-1); TOT PROT 6.7 g/dl (6.4-8.2)
[2023-01-18] MEDS ORDERED: CEFTRIAXONE 1 GM/50 ML BAG ONE (20:49)
[2023-01-18 21:22] VITALS: BP 122/70; PULSE 76; RESP 18
== END 2023-01-18 21:22 | disposition home or self-care (01) ==
LOC: JER 17:26
PROC: 3E03329 Introduction of Other Anti-infective into Peripheral Vein, Percutaneous Approach (ICD-10-PCS; principal; 2023-01-18)
PROC: 3E033NZ Introduction of Analgesics, Hypnotics, Sedatives into Peripheral Vein, Percutaneous Approach (ICD-10-PCS; 2023-01-18)
PROC: 3E033GC Introduction of Other Therapeutic Substance into Peripheral Vein, Percutaneous Approach (ICD-10-PCS; 2023-01-18)
DX: R42 Dizziness and giddiness (principal); R11.0 Nausea; G43.909 Migraine, unspecified, not intractable, without status migrainosus
CPT/HCPCS: 36415; 70450-TC; 80053; 81003; 83735; 84100; 84703; 85025; 87086; 93005; 93010; 99284-25